=== PATIENT | female | born 1970 | race Hispanic/Latino ===

== ENCOUNTER → 2024-10-22 | Outpatient (CLI) | payer BC ==
--- NOTE | 2024-10-22 10:12 | HMCIMG ---
US ABDOMINAL COMPLETE HISTORY: Abdominal pain COMPARISON: None TECHNIQUE: Multiple transverse and longitudinal ultrasound images of the abdomen were obtained. FINDINGS: Abdominal aorta and inferior vena cava are unremarkable. The visualized portion of the pancreas is within normal limits. Liver measures 15 cm. Liver is echogenic consistent with liver parenchymal disease. No gallstone is seen. Common duct measures 6 mm. No evidence of gallbladder wall thickening is seen. Both kidneys are seen. Right kidney measures 10.6 x 5 x 4.6 cm. Left kidney measures 11.2 x 5.9 x 5.1 cm. No hydronephrosis is seen of the both kidneys. The spleen is grossly unremarkable. IMPRESSION: 1. No gallstone. Borderline ductal dilatation is seen. 2. No hydronephrosis is seen.
--- NOTE | 2024-10-22 10:13 | HMCIMG ---
US PELVIC NON-OB COMP HISTORY: Leg pain COMPARISON: None TECHNIQUE: Transabdominal pelvic ultrasound study was performed. FINDINGS: The uterus measures 8.8 x 1.9 x 3.7 cm. The right ovary measures 2.1 x 0.9 x 2.1 cm. The left ovary measures 1.7 x 2.1 x 1.4 cm. Flow is seen in both ovaries. Endometrial thickness is 3 mm No free fluid is seen in the cul-de-sac. IMPRESSION: 1. No adnexal mass is seen.
== END | disposition home or self-care (01) ==
LOC: RAH 08:39
PROVIDERS: ATTEND Family Medicine
DX: R93.89 Abnormal findings on diagnostic imaging of other specified body structures (principal); K76.89 Other specified diseases of liver; R10.9 Unspecified abdominal pain; R10.2 Pelvic and perineal pain
CPT/HCPCS: 76700; 76856